=== PATIENT | male | born 1960 | race Caucasian/White ===

== ENCOUNTER 2023-06-25 11:18 | Emergency (ER) | payer OTHER ==
[2023-06-25 11:50] VITALS: BP 143/74; PULSE 57; RESP 18; TEMP 97.8; BMI 25.1
[2023-06-25] MEDS ORDERED: FAMOTIDINE 20 MG/50 ML IVPB 20 MG/50 ML MG IVPB ONE ×2 (12:50→13:58)
[2023-06-25] MEDS ORDERED: ACETAMINOPHEN 1000 MG/100 ML BAG IVPB ONE (12:50)
[2023-06-25] MEDS ORDERED: PANTOPRAZOLE SODIUM 40 MG VIAL IVPUSH ONE (12:51)
[2023-06-25] MEDS ORDERED: SODIUM CHLORIDE 0.9% 500 ML INFUS.BAG IV ONE (12:53)
[2023-06-25] MEDS ORDERED: ACETAMINOPHEN INJECTION 100 ML IVPB ONE (13:38)
[2023-06-25 13:50] LABS: BASO % 0.4 % (0-2.0); EOS % 0.7 % (0-4.5); HEMATOCRIT 51.6 % (35.4-49); HEMOGLOBIN 16.9 GM/dL (11.7-16.9); LYMPH % 20.9 % (8-40); MCH 28.9 pg (25.7-33.7); MCHC 32.8 g/dl (32.0-35.9); MEAN CELL VOLUME 88.1 fl (80-96); MEAN PLT VOLUME 10.4 fl (7.5-11.1); MONO % 6.9 % (3.8-10.2); NEUT % 71.1 % (42.8-82.8); PLATELET COUNT 120 10^3/uL (134-434); RBC 5.86 M/mm3 (4.00-5.60); WHITE BLOOD COUNT 7.8 K/mm3 (4.0-10.0)
[2023-06-25] MEDS ORDERED: PANTOPRAZOLE SODIUM 40 MG VIAL ONE (13:56)
[2023-06-25 14:07] LABS: CHLORIDE 111 mmol/L (98-107); SODIUM 141 mmol/L (136-145)
[2023-06-25 14:08] LABS: EPI CELLS 6 /uL (0-25.1); HYALINE CASTS 0 /uL (0-3.1); URINE APPEARANCE CLOUDY; URINE BACTERIA 17 /uL (0-1359); URINE BILIRUBIN NEGATIVE (NEGATIVE); URINE COLOR YELLOW; URINE GLUCOSE (UA) NEGATIVE (NEGATIVE); URINE KETONE 1+ (NEGATIVE); URINE LEUK ESTERASE 1+ (NEGATIVE); URINE NITRITE NEGATIVE (NEGATIVE); URINE PROTEIN 1+ (NEGATIVE); URINE WBC 91 /uL (0-25.8)
[2023-06-25 14:11] LABS: ALBUMIN 3.8 g/dl (3.4-5.0); BLOOD UREA NITROGEN 14.9 mg/dL (7-18); CALCIUM 9.5 mg/dL (8.5-10.1); CO2 24 mmol/L (21-32); GLUCOSE,RANDOM 70 mg/dL (74-106)
[2023-06-25 14:13] LABS: CREATININE 0.8 mg/dL (0.55-1.3); SGOT/AST 93 U/L (15-37)
[2023-06-25 14:15] LABS: BILIRUBIN,TOTAL 0.5 mg/dL (0.2-1); TOT PROT 7.2 g/dl (6.4-8.2)
[2023-06-25 14:17] LABS: ALK PHOS 119 U/L (45-117)
[2023-06-25] MEDS ORDERED: DEXTROSE 50%-WATER - 25 GM/50 ML VIAL IVPUSH ONE (14:17)
[2023-06-25 14:18] LABS: ANION GAP 6 mmol/L (4-13); POTASSIUM 6.8 mmol/L (3.5-5.1); SGPT/ALT 28 U/L (13-61)
[2023-06-25] MEDS ORDERED: DEXTROSE 50%-WATER 25 GM/50 ML DISP.SYRIN ONE (14:18)
[2023-06-25 14:21] LABS: INR 1.22 (0.83-1.09); PROTHROMBIN TIME (PATIENT) 14.1 SEC (9.7-13.0)
[2023-06-25 14:49] LABS: URINE CRYSTALS NEGATIVE /hpf; URINE RBC 42.3 /uL (0-23.9)
[2023-06-25 15:59] LABS: CHLORIDE 111 mmol/L (98-107); SODIUM 138 mmol/L (136-145)
[2023-06-25 16:00] LABS: CALCIUM 8.3 mg/dL (8.5-10.1)
[2023-06-25 16:01] LABS: ALBUMIN 3.2 g/dl (3.4-5.0); CO2 24 mmol/L (21-32); GLUCOSE,RANDOM 116 mg/dL (74-106)
[2023-06-25 16:05] LABS: CREATININE 0.7 mg/dL (0.55-1.3); SGOT/AST 58 U/L (15-37); SGPT/ALT 19 U/L (13-61)
[2023-06-25 16:06] LABS: BILIRUBIN,TOTAL 0.5 mg/dL (0.2-1)
[2023-06-25 16:07] LABS: ALK PHOS 100 U/L (45-117)
[2023-06-25 16:11] LABS: ANION GAP 3 mmol/L (4-13); POTASSIUM 6.6 mmol/L (3.5-5.1)
[2023-06-25 17:48] LABS: POTASSIUM 3.6 mmol/L (3.5-5.1)
[2023-06-25 17:52] LABS: ALBUMIN 3.7 g/dl (3.4-5.0); BLOOD UREA NITROGEN 13.4 mg/dL (7-18); CALCIUM 8.8 mg/dL (8.5-10.1)
[2023-06-25 17:54] LABS: CREATININE 0.6 mg/dL (0.55-1.3)
[2023-06-25 17:55] LABS: BILIRUBIN,TOTAL 0.5 mg/dL (0.2-1)
[2023-06-25 17:56] LABS: TOT PROT 6.2 g/dl (6.4-8.2)
== END 2023-06-26 01:08 | disposition home or self-care (01) ==
LOC: JER 11:18
PROC: 3E033GC Introduction of Other Therapeutic Substance into Peripheral Vein, Percutaneous Approach (ICD-10-PCS; principal; 2023-06-25)
PROC: 3E033NZ Introduction of Analgesics, Hypnotics, Sedatives into Peripheral Vein, Percutaneous Approach (ICD-10-PCS; 2023-06-25)
PROC: 3E033GC Introduction of Other Therapeutic Substance into Peripheral Vein, Percutaneous Approach (ICD-10-PCS; 2023-06-25)
PROC: 3E033GC Introduction of Other Therapeutic Substance into Peripheral Vein, Percutaneous Approach (ICD-10-PCS; 2023-06-25)
DX: R10.32 Left lower quadrant pain (principal); R63.8 Other symptoms and signs concerning food and fluid intake; R10.12 Left upper quadrant pain
CPT/HCPCS: 36415; 74177-TC; 80053; 81003; 82962; 83605; 83690; 85025; 85610; 86850; 86900; 86901; 87086; 93005; 93010; 99285-25; Q9967

== ENCOUNTER 2023-08-10 10:01 | Emergency (ER) | payer OTHER ==
[2023-08-10 10:29] VITALS: BMI 25.1
[2023-08-10 11:49] LABS: EPI CELLS 13 /uL (0-25.1); HYALINE CASTS 0 /uL (0-3.1); PH,URINE 6.5 (5.0-8.0); URINE APPEARANCE CLOUDY; URINE BACTERIA 55 /uL (0-1359); URINE BILIRUBIN NEGATIVE (NEGATIVE); URINE COLOR ORANGE; URINE GLUCOSE (UA) NEGATIVE (NEGATIVE); URINE KETONE NEGATIVE (NEGATIVE); URINE LEUK ESTERASE 1+ (NEGATIVE); URINE NITRITE NEGATIVE (NEGATIVE); URINE PROTEIN 2+ (NEGATIVE); URINE RBC 8669 /uL (0-23.9); URINE UROBILINOGEN 0.2 mg/dL (0.2-1.0); URINE WBC 88 /uL (0-25.8)
[2023-08-10 11:55] LABS: HEMATOCRIT 51.8 % (35.4-49); HEMOGLOBIN 17.9 GM/dL (11.7-16.9); MCH 30.3 pg (25.7-33.7); MCHC 34.5 g/dl (32.0-35.9); MEAN CELL VOLUME 87.9 fl (80-96); MEAN PLT VOLUME 10.2 fl (7.5-11.1); PLATELET COUNT 115 10^3/uL (134-434); RDW 15.2 % (11.9-15.9); WHITE BLOOD COUNT 7.2 K/mm3 (4.0-10.0)
[2023-08-10 12:24] LABS: INR 1.3 (0.83-1.09)
[2023-08-10 12:27] LABS: ACTIVATED PTT 39.7 SECONDS (25.2-36.5)
[2023-08-10 12:40] LABS: POTASSIUM 4.9 mmol/L (3.5-5.1)
[2023-08-10 12:44] LABS: BLOOD UREA NITROGEN 14.8 mg/dL (7-18)
[2023-08-10 12:45] LABS: ALBUMIN 4.1 g/dl (3.4-5.0); CALCIUM 9.4 mg/dL (8.5-10.1)
[2023-08-10 12:48] LABS: CREATININE 0.7 mg/dL (0.55-1.3)
[2023-08-10 12:50] LABS: BILIRUBIN,TOTAL 0.5 mg/dL (0.2-1)
[2023-08-10 12:52] LABS: ANISOCYTOSIS 0; HELMET CELLS 0; HOWELL-JOLLY BODIES 0; MACROCYTOSIS 0; OVALOCYTE 0; ROULEAU 0; SICKELED CELLS 0; TARGET CELLS 0; TEAR DROP CELLS 0; TOXIC GRANULATION 0
[2023-08-10] MEDS ORDERED: CEFTRIAXONE 1 GM/50 ML BAG ONE (18:30)
[2023-08-10] MEDS: CEFTRIAXONE 1,000 MG in DEXTROSE 5%-WATER - 50 ML IVPB ONE (18:45)
[2023-08-11 03:34] VITALS: BP 115/67; PULSE 78; RESP 18; TEMP 99.1
== END 2023-08-11 03:45 | disposition home or self-care (01) ==
LOC: JER 10:01
DX: R31.9 Hematuria, unspecified (principal); R10.30 Lower abdominal pain, unspecified; R30.0 Dysuria
CPT/HCPCS: 36415; 74176-TC; 80053; 81003; 85025; 85610; 85730; 87086; 99284-25

== ENCOUNTER 2024-06-26 10:05 | Emergency (ER) | payer OTHER ==
[2024-06-26 11:31] VITALS: BMI 34.0
[2024-06-26 11:57] LABS: BASO % 0.3 % (0-2.0); HEMATOCRIT 49.2 % (35.4-49); HEMOGLOBIN 16.5 GM/dL (11.7-16.9); LYMPH % 8.4 % (8-40); MCH 29.4 pg (25.7-33.7); MCHC 33.6 g/dl (32.0-35.9); MEAN CELL VOLUME 87.5 fl (80-96); MEAN PLT VOLUME 10.3 fl (7.5-11.1); MONO % 12.2 % (3.8-10.2); NEUT % 79.1 % (42.8-82.8); PLATELET COUNT 100 10^3/uL (134-434); RBC 5.62 M/mm3 (4.00-5.60); RDW 14.5 % (11.9-15.9); WHITE BLOOD COUNT 7.6 K/mm3 (4.0-10.0)
[2024-06-26 12:23] LABS: POTASSIUM 3.5 mmol/L (3.5-5.1)
[2024-06-26 12:26] LABS: ALBUMIN 3.8 g/dl (3.4-5.0); BLOOD UREA NITROGEN 13.4 mg/dL (7-18)
[2024-06-26 12:31] LABS: BILIRUBIN,TOTAL 0.6 mg/dL (0.2-1); TOT PROT 6.1 g/dl (6.4-8.2)
[2024-06-26 12:34] LABS: N-TERMINAL BNP 71.8 pg/ml (5-125)
[2024-06-26 15:29] LABS: EPI CELLS 5 /uL (0-25.1); HYALINE CASTS 1 /uL (0-3.1); PH,URINE 5.5 (5.0-8.0); URINE APPEARANCE CLOUDY; URINE BACTERIA 3245 /uL (0-1359); URINE BILIRUBIN NEGATIVE (NEGATIVE); URINE COLOR YELLOW; URINE GLUCOSE (UA) NEGATIVE (NEGATIVE); URINE KETONE 1+ (NEGATIVE); URINE LEUK ESTERASE 2+ (NEGATIVE); URINE NITRITE NEGATIVE (NEGATIVE); URINE PROTEIN 2+ (NEGATIVE); URINE RBC 3189 /uL (0-23.9); URINE WBC 2563 /uL (0-25.8)
[2024-06-26] MEDS: CEFPODOXIME PROXETIL 200 MG TABLET [NF] PO ONE (16:48)
[2024-06-26] MEDS ORDERED: ACETAMINOPHEN 325 MG TABLET (FP) ONE (20:31)
[2024-06-26] MEDS: ACETAMINOPHEN 325 MG TABLET (FP) PO ONE (20:38)
[2024-06-27 16:15] VITALS: TEMP 98.5
[2024-06-27 17:15] VITALS: BP 118/68; PULSE 64; RESP 16
== END 2024-06-27 17:15 | disposition home or self-care (01) ==
LOC: JER 10:05
DX: N39.0 Urinary tract infection, site not specified (principal); R53.1 Weakness; R50.9 Fever, unspecified; Z20.822 Contact with and (suspected) exposure to COVID-19
CPT/HCPCS: 0241U-QW; 36415; 71045-TC-FY; 80053; 81003; 83880; 84484; 85025; 87086; 93005; 93010; 99285-25